=== PATIENT | male | born 1990 | race Caucasian/White ===

== ENCOUNTER 2018-10-15 17:22 | Emergency (ER) | payer OTHER ==
[~2018-10-15] VITALS: Ht 175.3 cm; Wt 72.7 kg
[2018-10-15 17:54] VITALS: Ht 175.3 cm; Wt 72.7 kg
[2018-10-15] MEDS ORDERED: KETOROLAC 30 MG INJ IM STA (18:50)
[2018-10-15] MEDS ORDERED: HYDROCODONE/APAP (5/325) TAB PO ONE (19:00)
[2018-10-15] MEDS ORDERED: NAPR-985 PO (20:17)
[2018-10-15] MEDS ORDERED: CYCL10TA7 PO (20:17)
[2018-10-15 20:31] VITALS: BP 120/69; PULSE 55; RESP 20
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
== END 2018-10-15 20:33 | disposition home or self-care (01) ==
LOC: FTE 17:22
DX: S13.4XXA Sprain of ligaments of cervical spine, initial encounter (principal); J45.909 Unspecified asthma, uncomplicated; F17.210 Nicotine dependence, cigarettes, uncomplicated; V49.49XA Driver injured in collision with other motor vehicles in traffic accident, initial encounter
CPT/HCPCS: 72125; 72128; 72131; 96372; 99285; J1885